=== PATIENT | female | born 1955 | race Caucasian/White ===

== ENCOUNTER → 2023-12-11 16:28 | Outpatient (REF) | payer MEDICARE, OTHER, SELFPAY ==
[2023-12-11 17:47] LABS: % Basophils 0.8 % (0-2); % Eosinophils 1.9 % (0-6); % Immature Granulocytes 0.5 % (0-0.5); % Lymphocytes 21.8 % (20.5-51.1); Absolute Basophils 0.1 10^3/uL (0-0.2); Absolute Eosinophils 0.2 10^3/uL (0-0.7); Absolute Immature Granulocytes 0.1 10^3/uL (0-0.05); Absolute Lymphocytes 2.3 10^3/uL (1.2-3.4); Absolute Monocytes 0.6 10^3/uL (0.1-0.6); Absolute Neutrophils 7.1 10^3/uL (1.4-6.5); Hematocrit 38.5 % (37.0-47.0); Mean Corp Hgb Conc. 33.8 g/dL (33.0-37.0); Mean Corpuscular Hgb 29.9 pg (27.0-31.0); Mean Corpuscular Volume 88.5 fL (81.0-99.0); Mean Platelet Volume 10.2 fL (7.4-10.4); Nucleated Red Blood Cells % 0 %; Platelet Count 253 10^3/uL (130-400); Red Blood Cell Count 4.35 10^6/uL (4.20-5.40); Red Cell Dist. Width 13.8 % (11.5-14.5); White Blood Cell Count 10.3 10^3/uL (4.8-10.8)
== END ==
LOC: RAD 16:28
PROVIDERS: ATTENDING PHYSICIAN Physician Assistant Medical
DX: Z01.89 Encounter for other specified special examinations (principal); R31.0 Gross hematuria
CPT/HCPCS: 36415; 74018; 85025

== ENCOUNTER → 2024-01-08 09:44 | Outpatient (REF) | payer MEDICARE, OTHER, SELFPAY | LOC: HWRAD 09:44 | PROVIDERS: ATTENDING PHYSICIAN Specialist; FAMILY PHYSICIAN Physician Assistant Medical | DX: R31.0 Gross hematuria (principal) | CPT/HCPCS: 76770 ==

== ENCOUNTER → 2024-02-14 08:01 | Outpatient (REF) | payer MEDICARE, OTHER, SELFPAY | LOC: HWRAD 08:01 | PROVIDERS: ATTENDING PHYSICIAN Physician Assistant Medical | DX: Z87.898 Personal history of other specified conditions (principal) | CPT/HCPCS: 76856 ==

== ENCOUNTER → 2024-05-01 06:48 | Outpatient (REF) | payer MEDICARE, OTHER, SELFPAY | LOC: RCS 06:48 | PROVIDERS: ATTENDING PHYSICIAN Internal Medicine Cardiovascular Disease; FAMILY PHYSICIAN Physician Assistant Medical | DX: R06.09 Other forms of dyspnea (principal); R94.31 Abnormal electrocardiogram [ECG] [EKG]; E78.00 Pure hypercholesterolemia, unspecified; E11.9 Type 2 diabetes mellitus without complications | CPT/HCPCS: 78452; 93017; A9500 ==

== ENCOUNTER → 2024-05-08 14:38 | Outpatient (REF) | payer MEDICARE, OTHER, SELFPAY | LOC: RCS 14:38 | PROVIDERS: ATTENDING PHYSICIAN Internal Medicine Cardiovascular Disease; FAMILY PHYSICIAN Physician Assistant Medical | DX: R06.09 Other forms of dyspnea (principal); R94.31 Abnormal electrocardiogram [ECG] [EKG]; I10 Essential (primary) hypertension; E11.9 Type 2 diabetes mellitus without complications | CPT/HCPCS: 93306 ==

== ENCOUNTER → 2024-06-26 06:27 | Day surgery (SDC) | payer MEDICARE, OTHER, SELFPAY ==
[2024-06-26 07:36] LABS: Glucose - Point of Care 116 mg/dl (70-99)
== END ==
LOC: GI 06:27
PROVIDERS: ATTENDING PHYSICIAN Internal Medicine Gastroenterology; FAMILY PHYSICIAN Physician Assistant Medical
DX: Z12.11 Encounter for screening for malignant neoplasm of colon (principal); D12.3 Benign neoplasm of transverse colon; K57.30 Diverticulosis of large intestine without perforation or abscess without bleeding; K64.0 First degree hemorrhoids; K56.2 Volvulus; Z86.010 Personal history of colon polyps
CPT/HCPCS: 45380; 88305; 82962

== ENCOUNTER → 2024-09-02 07:52 | Outpatient (REF) | payer MEDICARE, OTHER, SELFPAY | LOC: WDC 07:52 | PROVIDERS: ATTENDING PHYSICIAN Physician Assistant Medical | DX: Z12.31 Encounter for screening mammogram for malignant neoplasm of breast (principal) | CPT/HCPCS: 77063; 77067 ==

== ENCOUNTER → 2024-11-18 07:37 | Outpatient (REF) | payer MEDICARE, OTHER, SELFPAY | LOC: HWRAD 07:37 | PROVIDERS: ATTENDING PHYSICIAN Internal Medicine; FAMILY PHYSICIAN Physician Assistant Medical | DX: R80.9 Proteinuria, unspecified (principal) | CPT/HCPCS: 76770 ==

== ENCOUNTER → 2024-12-03 07:11 | Outpatient (REF) | payer MEDICARE, OTHER, SELFPAY | LOC: RAD 07:11 | PROVIDERS: ATTENDING PHYSICIAN Internal Medicine; FAMILY PHYSICIAN Physician Assistant Medical | DX: N28.1 Cyst of kidney, acquired (principal); I10 Essential (primary) hypertension; R80.9 Proteinuria, unspecified | CPT/HCPCS: 74160; Q9967 ==

== ENCOUNTER 2025-01-01 06:37 | Day surgery (SDC) | payer MEDICARE, OTHER, SELFPAY ==
[2024-12-30 08:52] LABS: Hematocrit 38.4 % (37.0-47.0); Hemoglobin 12.7 g/dL (12.0-16.0); Mean Corp Hgb Conc. 33.1 g/dL (33.0-37.0); Mean Corpuscular Hgb 30.1 pg (27.0-31.0); Platelet Count 215 10^3/uL (130-400); Red Blood Cell Count 4.22 10^6/uL (4.20-5.40); Red Cell Dist. Width 14.3 % (11.5-14.5); White Blood Cell Count 8.3 10^3/uL (4.8-10.8)
[2024-12-30 09:43] LABS: Blood Urea Nitrogen 19 mg/dl (7-17); Calcium 9.7 mg/dl (8.4-10.2); Carbon Dioxide 25 mmol/L (22-30); Chloride 103 mmol/L (98-107); Glucose 108 mg/dl (70-99); Potassium 4.6 mmol/L (3.5-5.1); Sodium 139 mmol/L (135-145); eGFR > 60.00
[2024-12-30 14:09] VITALS: BMI 33.5
[2025-01-01] VITALS (7 sets, daily range): BP systolic 119–150; BP diastolic 65–79; BMI 33.5
[2025-01-01 08:34] LABS: Glucose - Point of Care 115 mg/dl (70-99)
[2025-01-01] MEDS: NORMOSOL-R/PLASMALYTE-A 1000 IV (08:35)
[2025-01-01 10:59] LABS: Glucose - Point of Care 97 mg/dl (70-99)
[2025-01-01] MEDS: Pyridium 200 MG PO (11:06)
== END 2025-01-01 12:17 | disposition home or self-care (01) ==
LOC: SDS 06:37
PROVIDERS: ATTENDING PHYSICIAN Specialist; FAMILY PHYSICIAN Physician Assistant Medical
DX: N13.2 Hydronephrosis with renal and ureteral calculous obstruction (principal)
CPT/HCPCS: 52356; 36415; 74018; 76000; 80048; 82365; 82962; 85027; 93005; A4300; C1894; C2617

== ENCOUNTER → 2025-06-18 06:47 | Outpatient (REF) | payer MEDICARE, SELFPAY | LOC: RAD 06:47 | PROVIDERS: ATTENDING PHYSICIAN Internal Medicine; FAMILY PHYSICIAN Physician Assistant Medical | DX: R30.0 Dysuria (principal); N20.0 Calculus of kidney | CPT/HCPCS: 76775 ==

== ENCOUNTER → 2025-09-05 07:50 | Outpatient (REF) | payer MEDICARE, OTHER, SELFPAY | LOC: WDC 07:50 | PROVIDERS: ATTENDING PHYSICIAN Physician Assistant Medical | DX: R80.9 Proteinuria, unspecified (principal); Z12.31 Encounter for screening mammogram for malignant neoplasm of breast | CPT/HCPCS: 77063; 77067 ==

== ENCOUNTER → 2025-09-23 13:23 | Outpatient (REF) | payer MEDICARE, OTHER, SELFPAY | LOC: RAD 13:23 | PROVIDERS: ATTENDING PHYSICIAN Physician Assistant Medical | DX: Z78.0 Asymptomatic menopausal state (principal) | CPT/HCPCS: 77080 ==